=== PATIENT | male | born 1950 | race African-American/Black ===

== ENCOUNTER 2019-06-25 10:16 | Inpatient (IN) | payer OTHER ==
[~2019-06-25] VITALS: Ht 180.3 cm; Wt 90.7 kg
--- NOTE | ~2019-06-25 | O ---
[facility] [place] [address] OPERATIVE REPORT Name: JANIE CHACON Room #: 412-P [facility] IN M.R.#: [id number] Admission: 06/25/19 Attend Phys: Tori Chopra MD Discharge: Date of : 54 Report #: [id number] THIS REPORT FOR: //name// CC: Tori Rutherford DATE OF SERVICE: 07/06/2019 PREOPERATIVE DIAGNOSIS: Left leg osteomyelitis. POSTOPERATIVE DIAGNOSIS: Left leg osteomyelitis. PROCEDURE: Left rirri-scb-ivyy amputation. SURGEON: Dr. Guillaume Garcia. DIDACTIC PROGRAM IN DIETETICS DIRECTOR: Marina Ruiz. ANESTHESIA: General. ESTIMATED BLOOD LOSS: Minimal. DRAINS: One Hemovac drain was placed. COMPLICATIONS: There were no complications. DESCRIPTION OF PROCEDURE: The patient was brought to the operating room where he was placed under general anesthesia. Once under adequate general anesthesia, his left lower extremity was prepped and draped in a sterile manner. The extremity was elevated and tourniquet was placed to 300 mmHg. A fishmouth type incision with a long posterior limb was then made about the mid shaft of the tibia. This was sharply dissected down to the bone both medially and laterally as well as posteriorly. The posterior vessels were identified and tagged with hemostats for later ligation. There was purulence fluid, which did emanate from the wound at this point, this was cultured. An oscillating saw was used to transect the tibia, which was then bevelled anteriorly. Similarly, the fibula was transected with an oscillating saw, a few centimeters proximal to the tibial cut. The wound was then irrigated copiously with pulsatile lavage. The posterior tibial vessels were then suture ligated with 0 silk suture. Once complete, the wound was irrigated once again copiously and closed with #1 Vicryl in the deep fascia to the periosteum of the tibia, 2-0 Vicryl in subcutaneous tissues and salud were used for the skin. The wounds were dressed with Xeroform, 4 x 4s, and a sterile soft compressive dressing was placed. Tourniquet was let down at 45 minutes. There were no complications from the [address] [address] OPERATIVE REPORT Name: OSWALDOJANIE Room #: 412-P [facility] IN M.R.#: [id number] Admission: 06/25/19 Attend Phys: Tori Chopra MD Discharge: Date of : 54 Report #: [id number] procedure. The patient tolerated the procedure well and went to the recovery room without incident. By: [id number] Guillaume Garcia MD /nt
--- NOTE | ~2019-06-25 | HC ---
[facility] [place] [address] CONSULTATION Name: JANIE CHACON Room #: 412-P [facility] IN M.R.#: [id number] Admission: 06/25/19 Attend Phys: Tori Chopra MD Discharge: Date of : 54 Report #: [id number] THIS REPORT FOR: //name// CC: Tori Rutherford DATE OF SERVICE: 06/29/2019 WOUND CARE CONSULTATION PERSONAL PHYSICIAN: Juan C Mckenzie. CHIEF COMPLAINT: Diabetic foot ulcers. HISTORY OF PRESENT ILLNESS: This is a 69-year-old black male with a longstanding history of diabetes and peripheral neuropathy, who stated approximately in the past 1-2 years he started developing a Charcot foot deformity on his left foot, developing a callus on the plantar aspect of the foot. The patient states that within the past month he was trying to clean a callus off the bottom aspect of his foot and might have gotten too deep. The patient subsequently developed an infection over the plantar aspect of the mid foot. He has been on 2 courses of antibiotics and was getting progressively worse. The patient states he has significant neuropathy, so does not have much pain associated with this. He had no fevers or chills. The patient was seen in the office by Dr. Mckenzie and was felt to have a significant foot infection, was admitted to the hospital for IV antibiotics. The patient admits he does not check his blood sugars on a regular basis. The patient was found to have an elevated blood sugar when admitted to the hospital. The patient denies any other associated ulcerations or wounds at this time. PAST MEDICAL HISTORY: Significant for longstanding diabetes, hypertension, hyperlipidemia, tonsillectomy and a Charcot foot arthropathy on the left foot. CURRENT MEDICATIONS: Multiple, I reviewed the patient's medication list and does include IV antibiotics at this time. DRUG ALLERGIES: None. 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 FAMILY HISTORY: Not pertinent to current medical condition. REVIEW OF SYSTEMS: CONSTITUTIONAL: The patient denies fevers or chills. NEUROLOGIC: The patient complains of significant neuropathy in his bilateral [facility] [address] [place] [address] CONSULTATION Name: JANIE CHACON Room #: 412-P [facility] IN ..#: [id number] Admission: 06/25/19 Attend Phys: Tori Chopra MD Discharge: Date of : 54 Report #: [id number] lower extremities. Denies any actual weakness in arms or legs. EYES: No complaints. ENT: No complaints. CARDIAC: The patient has chronic edema in bilateral lower extremities, left greater than right, but denies chest pain or palpitation. RESPIRATORY: The patient denies shortness of breath, cough or wheezes. GASTROINTESTINAL: The patient denies nausea, vomiting, abdominal pain. GENITOURINARY: The patient denies urgency or frequency. MUSCULOSKELETAL: No complaints. SKIN: There is bullous lesions noted on the left dorsal foot, which extends essentially circumferentially around the ankle. There is also a chronic ulcer on the plantar aspect of the left foot. PHYSICAL EXAMINATION: VITAL SIGNS: Temperature 37.1, pulse 89, respirations 18, BP 151/85. GENERAL: This is an alert and oriented x 3, pleasant black male who is in no obvious distress. HEENT: Normocephalic, atraumatic. Mucous membranes are moist. Pupils are round. Sclerae white. NECK: Supple, nontender. LUNGS: Clear. HEART: Regular. ABDOMEN: Soft, nontender. EXTREMITIES: The patient moves all extremities without difficulty. Evaluation of left lower extremity reveals trace edema. There is 1+ dorsalis pedis and posterior tibial pulse on the plantar aspect of the left foot, there is a chronic ulceration which is full thickness down into the subcutaneous tissues. There is no evidence of any exposed bone. There is surrounding callus without significant undermining or tunneling. There is no actual increased erythema or warmth. Evaluation of the dorsal aspect of the foot reveals bullous lesions extending circumferentially around the ankle. These are partial thickness through the dermal tissue. There is mild increased erythema and warmth. There is no significant tenderness. Evaluation of left great toe reveals to be ecchymotic/necrotic but nontender. There is no significant breakdown of the left fifth toe. There is no extension of any obvious signs of necrosis down into the foot itself. Right foot is unaffected. Left foot, there is a significant Charcot arthropathy noted on the left foot. NEUROLOGIC: Cranial nerves 2-12 grossly intact. Motor and sensory grossly intact. LABORATORY DATA: White count 9.1, hemoglobin 9.4. Sed rate 72. Albumin 1.3. Hemoglobin A1c is 12.6. Testosterone level is pending. Arterial Dopplers of the left lower extremity show triphasic flow down to the ankle without any signs of stenosis. MRI of the left foot reveals acute Charcot foot changes, but no signs of acute osteomyelitis. [facility] [address] [place] [address] CONSULTATION Name: JANIE CHACON Room #: 412-P [facility] IN M.R.#: [id number] Admission: 06/25/19 Attend Phys: Tori Chopra MD Discharge: Date of : 54 Report #: [id number] WOUND CARE COURSE: At the bedside, the patient had the wound cleansed aggressively by myself with gauze and saline, removing significant amount of the bullous denuded lesions down to healthy dermal tissue. The patient tolerated well. I will start Silvadene, Xeroform, ABDs, Kerlix and Cain to the left foot daily. At this time, hopefully all these changes noted on the MRI and the clinical exam are secondary to Charcot arthropathy. The patient will not require amputation of the foot itself. The patient most likely will require an amputation of the left fifth toe, which the patient is understandable of that. IMPRESSION: 1. Acute Charcot arthropathy, left foot with associated bullous cellulitis. 2. Necrotic left fifth toe. 3. Diabetes mellitus with poor control. 4. Generalized debility. 5. Protein-calorie malnutrition -- severe with albumin 1.3. PLAN: As described above. We will continue to follow the patient for aggressive wound care. Once again, the patient does understand that most likely he will lose his fifth toe, but hopefully will be able to salvage the rest of his foot at this time. The patient will need aggressive offloading with a [place] boot or similar at discharge. We will continue all other current medications including IV antibiotics. By: [id number] [address]i [address] MD /nt
[2019-06-25 10:17] VITALS: BP 133/74
[2019-06-25] MEDS ORDERED: METFORMIN HCL1000 MG PO (10:48)
[2019-06-25] MEDS ORDERED: AMLODIPINE BESY10 MG PO (10:53)
[2019-06-25] MEDS ORDERED: GLYBURIDE 5 MG T5 M1 PO (10:53)
[2019-06-25] MEDS ORDERED: LIPITOR10 MG PO (10:53)
[2019-06-25 13:49] LABS: ABSOLUTE NEUTROPHILS 10.3 thou/uL (1.4-8.2); BASOPHILS 0.3 % (0.0-2.0); EOSINOPHILS 0.1 % (0.0-3.0); HEMATOCRIT 33.6 % (42.0-52.0); HEMOGLOBIN 10.8 gm/dL (14.0-18.0); MCH 29.1 pg (26.0-34.0); MCHC 32.2 g/dL (28.0-37.0); MCV 90.2 fL (80.0-100.0); MONOCYTES 5.2 % (1.0-8.0); PLATELET COUNT 298 thou/uL (150-400); POLYS 84.4 % (36.0-66.0); RBC 3.72 mil/uL (4.50-6.00); WBC 12.2 thou/uL (4.0-11.0)
[2019-06-25 14:01] LABS: CALCIUM 10.2 mg/dL (8.5-10.1); CREATININE 1.1 mg/dL (0.7-1.3); POTASSIUM 3.6 mmol/L (3.5-5.1)
--- NOTE | 2019-06-25 15:51 | NUR ---
WOUND CARE CONSULT; ASSESSMENT RE; CHARCOT FOOT/CELLULITIS. THE FOOT HAS S/S CONSISTIENT W/ CHARCOT FOOT. A DRAINING WOUND OF THE LEFT PLANTAR FOOT,WITH PURULENT DRAINAGE. SKIN SHOUGING TO THE LAT FOOT AND HEEL. THE DORSUM FOOT HAS A WOUND THAT HAS BEEFY RED TISSUE. RECOMMENDATIONS; CONSULT DR SARATH ABRAHAM FOR WOUND CARE MEDICAL MANAGEMENT. AG FOAM TO ALL WOUNDS, SECURE WITH KERLIX, DAILY/PRN TO THE DORSUM,PLANTAR FOOT AND ANKLE. ELEVATE THIS EXTREMITY ON PILLOWS.
[2019-06-25 16:16] VITALS: BP 128/69
[2019-06-25 16:36] VITALS: BP 132/72
--- NOTE | 2019-06-25 18:26 | NUR ---
PT ARRIVED ON UNIT FROM ER AT 1700. PT VSS, BS 262, AND DENIES PAIN IN LLE. PT IS AOX4, IV SL RIGHT AC. PT ARRIVED IN WHEELCHAIR AND TRANSFERRED TO BED BY STAND PIVOT. PT LEFT FOOT HAS 3+ EDEMA. WOUND CARE NURSE ASSESSED AND WRAPPED FOOT IN ER. PT TOLERATED A REGULAR DIET, NO SKIN BREAKDOWN, LAST BM 06/23/19. NURSE ENCOURAGED PT TO USE CALL LIGHT BEFORE GETTING OUT OF BED. PT USES APPROP. CALL LIGHT/PERSONAL ITEMS IN REACH. WILL CONTINUE TO MONTIOR.
[2019-06-25 21:21] VITALS: BP 128/71
--- NOTE | 2019-06-26 05:47 | NUR ---
ASSUMED PT CARE AT 1915. PT IS A&OX4. THE PT IS PLEASANT AND BEHAVES APPROPRIATELY. PT HAS AN IV IN THE RIGHT AC. PT TOOK SCHEDULED MEDS. I HUNG THE ANTIBIOTICS. THE PT'S BLOOD SUGAR WAS 307. I GAVE 16 UNITS OF LISPRO. THE PT COMPLAINED OF PAIN OF 10 ON A SCALED OF 0-10 ON THE LEFT FOOT AND ANKLE. PT'S LEFT FOOT/ANKLE HAS A 3+ EDEMA AND IS WARM TO THE TOUCH. THE PT SAID THAT HE COULD NOT SLEEP DUE TO THE PAIN. I CALLED THE [employer] WORK[employer] TO GET SOMETHING FOR PAIN. I GAVE THE PT 2 HYDROCODONES. HE IS CURRENTLY RESTING IN HIS ROOM. WILL CONTINUE TO MONITOR.
[2019-06-26 07:28] VITALS: BP 141/74
[2019-06-26 07:31] LABS: BASOPHILS 0.2 % (0.0-2.0); EOSINOPHILS 0.5 % (0.0-3.0); HEMOGLOBIN 9.2 gm/dL (14.0-18.0); LYMPHOCYTES 19.1 % (24.0-44.0); MCH 29.5 pg (26.0-34.0); MCHC 32.6 g/dL (28.0-37.0); MCV 90.3 fL (80.0-100.0); MONOCYTES 5.7 % (1.0-8.0); PLATELET COUNT 275 thou/uL (150-400); POLYS 74.5 % (36.0-66.0); RDW 13.6 % (10.5-14.5); WBC 9.4 thou/uL (4.0-11.0)
[2019-06-26 07:47] LABS: INR 1.1; PROTIME 11.7 Seconds (9.3-11.4)
[2019-06-26 07:53] LABS: ALBUMIN 1.3 g/dL (3.4-5.0); CALCIUM 9.5 mg/dL (8.5-10.1); MAGNESIUM 1.5 mg/dL (1.8-2.4); POTASSIUM 3.1 mmol/L (3.5-5.1); TOTAL BILIRUBIN 0.3 mg/dL (<0.1-1.0); TOTAL PROTEIN 6.8 g/dL (6.4-8.2)
--- NOTE | 2019-06-26 09:16 | NUR ---
Nutrition: Assessed due to wound. Admit: cellulitis L foot, active charcot. Possible osteomyelitis. Hx: DM II. No wt loss reported, but on interview, pt reports low appetite for ~1 week (eating < 50% compared to baseline intake). However, appetite came back Sun 06/24. Ate 80% of dinner 06/25 and nearly 100% of AM tray today (omelette, sausage, waffle w/ SF syrup, juice). Understands DM diet; follows a low Na, low CHO diet at home. Educated him on protein importance for wounds. Per EMR: L foot/ankle 3+ edema, charcot foot, L plantar foot wound w/ drainage. On antibiotics. Discussed priority protein first at meals in case appetite varies. Pt very active prior to this, walking before gym session. BG greatly elevated at 262-307 mg/dl last night, 136 this AM per pt. Agrees to daily Ensure MAX for added protein, low carb value to help keep BGs lower to minimize delayed wound healing. Low nutrition risk as pt very knowledgeable and nutrition aware.
--- NOTE | 2019-06-26 10:40 | NUR ---
INITIAL ASSESSMENT: SW reviewed chart and spoke with nursing and attending physician. 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 Mckenzie, yesterday. Pt with left foot cellulitis. Pt with hx of DM. Pt is on IV abx: vanco/zosyn. ID and wound care consulted. SW met with pt at bedside. Introduced role of SW. Pt is alert/orientated x 4. Pt reports he lives at home with his . Prior to admission pt was wearing a boot and using a walker. No hx of services or post-acute placement. Pt's PCP is Dr. Rutherford. SW is following to assist as needed with discharge planning.
[2019-06-26 15:43] VITALS: BP 167/80
--- NOTE | 2019-06-26 20:05 | NUR ---
ASSUMED CARE OF PATIENT AT 0715, PATIENT ALERT AND ORIENTED X 4. PATIENT C/O PAIN 10/11, BUT REFUSED PAIN MEDS THIS AM. PATIENT VOIDS PER URINAL, LAST BOWEL MOVEMENT 06/24/19. DR DIAZ SAW THE PATIENT TODAY, US ATERIAL LOWER EXT. ORDERED, DONE BY ILDA. PATIENT C/O PAIN HYDROCODONE 2 TABLETS GIVEN 01/10, WITH GOOD RELIEF. WOUND CARE DONE TO LEFT FOOT, PHOTO TAKEN, UNABLE TO MEASURE. RIGHT AC IV IN PLACE, NS AT 100CC/HR. PATIENT RECEIVING 2 IV ANTIBIOTICS THIS SHIFT. THIS RN PLACED CALL TO DR CORBIN, LEFT VOICE MESSAGE ON [employer] IS [facility] [place] [address] [address], BUT NO RETURN CALL. WILL CONTINUE TO MONITOR.
[2019-06-26 21:22] VITALS: BP 151/79
--- NOTE | 2019-06-27 03:21 | NUR ---
ASSUMED CARE OF PATIENT AT APPROX 1999. ASSESSMENT CHARTED. MEDICATIONS GIVEN PER SEP. PATIENT IS A&OX4, VSS, O2 SATS WNL ON RA. PATIENT VOICES PAIN AT FOOT. PRN PAIN MEDS ADMINISTERED. PATIENT GETS UP TO BATHROOM WITH ASSIST X 2 BUT HAS NOT GOTTEN UP THIS SHIFT. PATIENT VOIDS IN URINAL; DARK YELLOW URINE. HEPARIN ADMINISTERED FOR VTE PROPHALAXIS. INSULIN ADMINISTERED FOR FSBS OF 166. PATIENT DENIES ANY OTHER NEEDS AT THIS TIME. FALL PRECAUTIONS IN PLACE; PATIENT CALLS OUT APPROPRIATELY. WILL CONTINUE TO MONITOR AND FOLLOW POC
[2019-06-27 04:06] LABS: GLYCOHEMOGLOBIN (HGB A1C) 12.6 % (4.8-5.6)
[2019-06-27 05:54] VITALS: BP 150/84
[2019-06-27 07:08] LABS: ABSOLUTE NEUTROPHILS 7.3 thou/uL (1.4-8.2); BASOPHILS 0.2 % (0.0-2.0); EOSINOPHILS 0.6 % (0.0-3.0); HEMATOCRIT 28.1 % (42.0-52.0); HEMOGLOBIN 9.3 gm/dL (14.0-18.0); LYMPHOCYTES 18.3 % (24.0-44.0); MCH 29.9 pg (26.0-34.0); MCHC 33.1 g/dL (28.0-37.0); MCV 90.5 fL (80.0-100.0); MONOCYTES 6.8 % (1.0-8.0); PLATELET COUNT 260 thou/uL (150-400); POLYS 74.1 % (36.0-66.0); RDW 13.7 % (10.5-14.5); WBC 9.9 thou/uL (4.0-11.0)
[2019-06-27 07:13] LABS: CALCIUM 8.7 mg/dL (8.5-10.1); MAGNESIUM 1.4 mg/dL (1.8-2.4); PHOSPHORUS 3.5 mg/dL (2.5-4.9); POTASSIUM 3.4 mmol/L (3.5-5.1)
[2019-06-27 08:11] VITALS: BP 131/77
--- NOTE | 2019-06-27 18:06 | NUR ---
Assumed pt care at 7am.Assessment completed.vss.Pt tolerated meds and diet. Dr Jones here early this shift and order noted.Drsg inatct to left foot.Wound cx will be obtain next drsg change.Pt took shower this afternoon.Piv accidentally dc'd by pt and new one placed.Family here to visit.Pt c/o left foot pain and lortab 2 tabs given with relief.Will continue to monitor.
[2019-06-27 20:22] VITALS: BP 156/89
[2019-06-28 03:55] VITALS: BP 185/96
--- NOTE | 2019-06-28 04:02 | NUR ---
ASSUMED CARE AROUND 191. AXOX4. LEFT FOOT DRESSING CHANGED AND CULTURE COLLECTED AT BEDSIDE. NOTED BP ELEVATION AND PT'S HOME BP MED WAS NOT RESTARTED. CALLED [employer]REG MOFFETT DESIGN CONSULTANT FOR AND OBTAINED NEW ORDERS FOR ELEVATED BP. PAIN MANAGED PER MD ORDER AND L FOOT HAS BEEN ELEVATED HIGHER THAN CHEST LEVEL AT ALL TIME AT THIS TIME. NO S/S ACUTE DISTRESS NOTED OR REPORTED AT THIS TIME. WILL CONT TO MONITOR FOR ANY CHANGES IN CONDITION.
[2019-06-28 05:37] LABS: MAGNESIUM 1.5 mg/dL (1.8-2.4); POTASSIUM 3.4 mmol/L (3.5-5.1)
[2019-06-28 06:07] VITALS: BP 146/79
--- NOTE | 2019-06-28 06:59 | NUR ---
Nutrition update: Pt already assessed by RD on 06/26, educated on protein foods and started on oral nutrition supplement (Ensure Max daily: 30 g protein, only 6 g CHO). See note from 06/26. Received consult for 'protein supplement, Wilder.' Pt eating incredibly well. Ate 100% of 3 meals on 06/26, 100% of 3 meals on 06/27, plus 100% 2 supplements on 06/27. Given that pt consumed 2 supplements in 1 day, will regularly increase Ensure Max to BID at breakfast and dinner and add Wilder modular daily to midday meal. With increased nutrition interventions and 100% PO intake, low nutrition risk.
[2019-06-28 07:57] VITALS: BP 172/85
[2019-06-28 11:53] VITALS: BP 138/71
[2019-06-28 15:08] LABS: TESTOSTERONE* 44 ng/dL (264-916)
--- NOTE | 2019-06-28 16:15 | NUR ---
CARE TEAM INDICATED THAT ORTHO HAD BEEN CONSULTED. CM TO FOLLOW REGARDING DC PLANNING.
--- NOTE | 2019-06-28 16:25 | NUR ---
Assumed pt care this am, VS have been stable, supplements have been ordered. Wound dressing done, awaiting podietry consult and surgical consult to come and visits call outs have been made. LLE elevated, pain managed with medications. POC followed.
[2019-06-28 16:31] VITALS: BP 129/64
[2019-06-28 19:51] VITALS: BP 131/65
--- NOTE | 2019-06-29 00:45 | NUR ---
ASSUMED PT CARE AT 1900. PT A&O X4. LEFT FOOT WOUND WEEPING, DRESSING CHANGED. PAIN MANAGED WITH MEDICATIONS. MAG & K ONE TIME DOSE GIVEN FOR LOW VALUES. STARTED ON INSULIN GLARGINE WILLIAM. DR DIAZ SAW PT THIS EVENING. NO OTHER SIGNIFICANT CHANGES, WILL CONTINUE TO MONITOR.
[2019-06-29 06:27] LABS: ABSOLUTE NEUTROPHILS 7.1 thou/uL (1.4-8.2); BASOPHILS 0.4 % (0.0-2.0); EOSINOPHILS 0.3 % (0.0-3.0); HEMATOCRIT 29.4 % (42.0-52.0); HEMOGLOBIN 9.4 gm/dL (14.0-18.0); LYMPHOCYTES 16.7 % (24.0-44.0); MCH 29.1 pg (26.0-34.0); MCV 90.9 fL (80.0-100.0); MONOCYTES 5.3 % (1.0-8.0); PLATELET COUNT 263 thou/uL (150-400); POLYS 77.3 % (36.0-66.0); RBC 3.24 mil/uL (4.50-6.00); RDW 14.4 % (10.5-14.5); WBC 9.1 thou/uL (4.0-11.0)
[2019-06-29 06:52] LABS: ALBUMIN 1.3 g/dL (3.4-5.0); CALCIUM 8.3 mg/dL (8.5-10.1); MAGNESIUM 1.8 mg/dL (1.8-2.4); PHOSPHORUS 3.3 mg/dL (2.5-4.9); POTASSIUM 3.9 mmol/L (3.5-5.1); TOTAL BILIRUBIN 0.3 mg/dL (<0.1-1.0); TOTAL PROTEIN 6.4 g/dL (6.4-8.2)
[2019-06-29 07:30] VITALS: BP 151/85
--- NOTE | 2019-06-29 12:06 | NUR ---
Assumed pt care at 7am.Pt in bed alert and oriented x4.Assessment completed. vss.Blood sugar this am was 129.Insulin given with other am meds with breakfast and well tolerated.Dr Jacobo and Nav here,both discussed on pt care options.Pt will take shower later this afternoon.Will continue to monitor.
--- NOTE | 2019-06-29 13:38 | NUR ---
SW reviewed chart and spoke with nursing and attending physician. Ortho, podiatry, wound care and ID following. Pt will need further debridement. Possible amputation per ortho. Pt will most likely need IV abx at time of discharge. SW met with pt at bedside to discuss discharge needs. Pt states that if he needs IV abx, he will be agreeable with going to a skilled facility. Pt states that his will not be able to assist him. SW provided pt with list of SNFs for review. No weekend discharge planned. Awaiting input from ID regarding abx. Pt will need midline placed. SW is following to assist as needed with discharge planning.
[2019-06-29 14:56] VITALS: BP 148/92
[2019-06-29 19:06] VITALS: BP 141/76
[2019-06-29 22:09] LABS: FREE TESTOSTERONE 5.7 pg/mL (6.6-18.1)
--- NOTE | 2019-06-30 03:53 | NUR ---
PATIENT ALERT AND ORIENTED X4. REMAINS IN BED THROUGHOUT THE NIGHT. VOIDING PER URINAL. DRESSING DRY AND INTACT. IV ABX INFUSED W/O COMPLICATION. BS AND INSULIN PER ORDER. RESTING QUIETLY. WILL MONITOR.
[2019-06-30 05:52] LABS: ABSOLUTE NEUTROPHILS 4.6 thou/uL (1.4-8.2); BASOPHILS 0.4 % (0.0-2.0); HEMATOCRIT 27.7 % (42.0-52.0); LYMPHOCYTES 24.1 % (24.0-44.0); MCH 29.1 pg (26.0-34.0); MCHC 32.4 g/dL (28.0-37.0); MCV 89.7 fL (80.0-100.0); MONOCYTES 7.6 % (1.0-8.0); PLATELET COUNT 250 thou/uL (150-400); POLYS 66.9 % (36.0-66.0); RBC 3.08 mil/uL (4.50-6.00); WBC 6.8 thou/uL (4.0-11.0)
[2019-06-30 06:01] LABS: CALCIUM 8.8 mg/dL (8.5-10.1); POTASSIUM 3.7 mmol/L (3.5-5.1)
[2019-06-30 07:35] VITALS: BP 155/87
--- NOTE | 2019-06-30 17:09 | NUR ---
ASSUMED CARE OF PATIENT AT 0715, PATIENT ALERT AND ORIENTED X 4. PATIENT USES URINAL, BUT HAS NOT BBE UP TO BSC TO HAVE A BOWEL MOVEMENT, RECEIVING MIRALAX SCHEDULED. PATIENT HAS LEFT FOREARM IV IN PLACE, RECEIVING IV ANTIBIOTICS. PATIENT DENIES PAIN THIS AM, BUT C/O PAIN WITH LEFT FOOT, AFTER WOUND CARE DONE, WOUND CARE DONE THIS AM AND ELEVATED LEFT FOOT ON A PILLOWS. PATIENT ON ROOM AIR, BILATERAL LUNGS CLEAR. PATIENT WAS GIVEN HYDROCODONE 2 TABLETS, FOR PAIN /, GOOD RELIEF DOWN TO 2/10. BLOOD SUGAR MONITORING ORDERED, S/S INSULIN GIVEN AT LUNCH 229, RECEIVED [address] HARRISON HERE THIS AM, MADE CHANGES TO LANTUS AT BEDTIME, INCREASED TO 15 UNITS AT HS. WILL NING TO MONITOR.
[2019-06-30 18:25] VITALS: BP 172/88
[2019-06-30 20:15] VITALS: BP 158/86
--- NOTE | 2019-07-01 04:00 | NUR ---
PATIENT ALERT AND ORIENTED X4. REMAINS IN BED THROUGHOUT THE NIGHT. DRESSING TO LEFT FOOT CHANGED - MODERATE AMOUNT OF SEROSANG. DRAINAGE WITH SOME YELLOW NOTED. PATIENT TOLERATED WELL. BS MONITORED PER ORDER. PAIN MED REQUESTED AND GIVEN WITH GOOD RESULTS. RESTING QUIETLY. WILL MONITOR.
[2019-07-01 07:27] VITALS: BP 116/67
[2019-07-01 14:44] VITALS: BP 143/70
--- NOTE | 2019-07-01 21:03 | NUR ---
ASSUMED CARE OF PT AT 0715. PT IS A&OX4. IS ON ROOM AIR. IS UP WITH 1 ASSIST, GB, WALKER. FALL PRECAUTIONS & HOURLY ROUNDING MAINTAINED. REPORTS PAIN IN THE LEFT FOOT THAT IS BEING MANAGED WITH PAIN MEDS. DRSG WAS CHANGED BY DR. MONTES DE OCA THIS AM. LABS & VITALS REVIEWED. PT IS STABLE. CALL LIGHT WITHIN REACH. WILL CONTINUE TO MONITOR.
[2019-07-01 21:07] VITALS: BP 155/89
--- NOTE | 2019-07-02 04:07 | NUR ---
PATIENT ALERT AND ORIENTED X4. DENIES PAIN. ACCUCHECK WAS 318, RECIEVED BOTH LANTUS AND LISPRO INSULINB. DRESSING ON L FT SATURATED, DRESSING CHANED. USES URINAL. SLEPT OFF AND ON DURING NIGHT.
[2019-07-02 04:50] LABS: ABSOLUTE NEUTROPHILS 4.1 thou/uL (1.4-8.2); ALBUMIN 1.3 g/dL (3.4-5.0); BASOPHILS 0.3 % (0.0-2.0); CALCIUM 9.3 mg/dL (8.5-10.1); CREATININE 1.1 mg/dL (0.7-1.3); EOSINOPHILS 1.1 % (0.0-3.0); HEMATOCRIT 27.8 % (42.0-52.0); HEMOGLOBIN 9.2 gm/dL (14.0-18.0); LYMPHOCYTES 31.9 % (24.0-44.0); MAGNESIUM 1.8 mg/dL (1.8-2.4); MCH 29.7 pg (26.0-34.0); MCHC 33.1 g/dL (28.0-37.0); MCV 89.7 fL (80.0-100.0); MONOCYTES 8.4 % (1.0-8.0); PHOSPHORUS 3.8 mg/dL (2.5-4.9); PLATELET COUNT 315 thou/uL (150-400); POLYS 58.3 % (36.0-66.0); POTASSIUM 3.8 mmol/L (3.5-5.1); TOTAL BILIRUBIN 0.2 mg/dL (<0.1-1.0); TOTAL PROTEIN 7.5 g/dL (6.4-8.2)
[2019-07-02 07:48] VITALS: BP 155/87
--- NOTE | 2019-07-02 08:47 | NUR ---
SW reviewed chart and spoke with nursing and attending physician. Pt is progressing towards goals for discharge. Pt will need wound care and continued IV abx. TAWANA met with pt at bedside to discuss discharge plan. Pt requests to have referral sent to [facility] due to location. town planner to fax referral. TAWANA notified Ev at [facility] of new referral. TAWANA is following to assist as needed with discharge planning.
--- NOTE | 2019-07-02 09:52 | NUR ---
DISCHARGE PLANNING. ANTICIPATED DISCHARGE TODAY. POST ACUTE RECOMMENDED AT DISCHARGE. PATIENT REFERRAL FAXED TO [facility]. CALL PLACED TO [facility] ADMISS[facility], TO NOTIFY OF REFERRAL AND PATIENTS DC NEEDS. DEMETRIUS TO REVIEW AND NOTIFY CM. FOLLOWING.
[2019-07-02 11:08] LABS: KAPPA FREE LIGHT CHAINS 100.2 mg/L (3.3-19.4); KAPPA/LAMBDA RATIO 1.04 (0.26-1.65); LAMBDA FREE LIGHT CHAINS 96.2 mg/L (5.7-26.3)
[2019-07-02 16:05] VITALS: BP 138/74
[2019-07-02 20:24] VITALS: BP 139/74
--- NOTE | 2019-07-02 20:35 | NUR ---
Received awake on bed. Due medications given as prescribed, able to swallow meds w/o difficulty. A+O. On room air. Vital signs stable. On blood sugar monitoring, taken and recorded accordingly; with sliding scale insulin- given as prescribed. Able to use urinal and assisted in using bedside commode. With SL at L FA- intact and flushing well. With dressing at L foot- changed 2x today. Able to use gaitbelt and walker with standby assisted. Assisted in ADLs. Tolerating diet well; no nausea, no vomiting and no abdominal pain noted. Complained of pain, due PRN pain meds given as prescribed- Called pharmacy to modify pain scale criteria for pt's pain meds. Visited by relatives today. For possible discharge tomorrow.
[2019-07-03 06:25] LABS: HEMATOCRIT 25.3 % (42.0-52.0); HEMOGLOBIN 8.2 gm/dL (14.0-18.0); MCH 29.2 pg (26.0-34.0); MCHC 32.4 g/dL (28.0-37.0); MCV 90.2 fL (80.0-100.0); RBC 2.8 mil/uL (4.50-6.00); RDW 13.9 % (10.5-14.5); WBC 6.1 thou/uL (4.0-11.0)
[2019-07-03 06:47] LABS: CALCIUM 9.1 mg/dL (8.5-10.1); POTASSIUM 3.8 mmol/L (3.5-5.1)
--- NOTE | 2019-07-03 07:11 | NUR ---
ASSUMED PT CARE AR 1915. PT IS A&OX4. PT IS ON ROOM AIR. PT HAS A LEFT FOREARM IV SALINE LOCKED. I DID A DRESSSING CHANGE ON THE LEFT FOOT. PT COMPLAINS OF LEVEL 9 PAIN AFTER DRESSING CHANGE. PT RECEIVED HYDROCODONE. PT BLOOD SUGAR WAS 213. PT RECEIVED 15 UNITS OF LANTUS AND 10 UNITS OF LISPRO. PT TOOK SCHEDULED MEDICATION. PT SLEPT THROUGHT THE NIGHT. PT IS LOOKING FORWARD TO DISCHARGE BUT NOT EXPECTING IT BECAUSE OF THE CHANGE OF PLANS LAST MINUTE. PT RESTING IN HIS ROOM.
[2019-07-03 08:12] VITALS: BP 165/91
--- NOTE | 2019-07-03 12:27 | NUR ---
SW reviewed chart and spoke with nursing and attending physician. Ortho to be consulted for possible left BKA. SW remains on IV abx: cipro/merrem. urban planner updated spiritual care coordinator at [facility], who has accepted pt. Pt may be a 5N candidate pending on possible amputation. SW is following to assist as needed with discharge planning.
[2019-07-03 15:17] VITALS: BP 136/69
--- NOTE | 2019-07-03 18:18 | NUR ---
PT ALERT AND ORIENTED TIMES FOUR. VSS. PT DENIES PAIN/SOA. PT TOLEARTES MEDS AND MEALS. SEVERAL FAMILY MEMBERS AT BEDSIDE THIS SHIFT. WILL CONTINUE TO MONITOR.
[2019-07-03 20:01] VITALS: BP 175/85
[2019-07-03 23:41] VITALS: BP 144/78
--- NOTE | 2019-07-04 06:02 | NUR ---
Assumed pt care @ 1900. Pt is A/OX4,pleasant. Pt's BP elevated at HS medicated with Hydralazine PRN and down to 144/78. C/o pain to left foot,medicated per EMAR with relief reported. Wound care done to left foot withoput problems,copious brown/yellow drainage observed. Pt resting in bed at this time with no distress noted. Will continue to monitor pt.
[2019-07-04 06:22] LABS: HEMATOCRIT 25.6 % (42.0-52.0); HEMOGLOBIN 8.5 gm/dL (14.0-18.0); MCH 29.6 pg (26.0-34.0); MCHC 33.1 g/dL (28.0-37.0); MCV 89.6 fL (80.0-100.0); RBC 2.86 mil/uL (4.50-6.00); RDW 13.5 % (10.5-14.5); WBC 5.8 thou/uL (4.0-11.0)
[2019-07-04 06:35] LABS: CALCIUM 9.4 mg/dL (8.5-10.1); POTASSIUM 3.8 mmol/L (3.5-5.1)
[2019-07-04 08:00] VITALS: BP 137/71
[2019-07-04 13:40] VITALS: BP 123/72
--- NOTE | 2019-07-04 17:16 | NUR ---
ASSUMED CARE OF PATIENT AT 0715, PATIENT ALERT AND ORIENTED X 4. PATIENT C/O PAIN WITH LEFT FOOT, 01/10, RECEIVED 2 HYDROCODONE TABLETS. WITH AM MED PASS. VSS. LEFT FOOT WOUND DRESSING IN PLACE, LEFT FOOT ELEVATED ON PILLOWS. PATIENT HAS LEFT FOREARM IV IN PLACE, PATIENT RECEIVED 3 IV AN[address]ICS THIS SHIFT. DR RECINOS HERE TO SEE THE PATIENT THIS AM, NO NEW ORDERS RECEIVED. PATIENT STATES HE HAS DECIDED TO HAVE AMPUTATION OF LEFT FOOT DONE. WILL CONTINUE TO MONITOR.
[2019-07-04 21:00] VITALS: BP 131/77
--- NOTE | 2019-07-05 05:00 | NUR ---
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 REMAINS IN [employer]. PLEASANT AND COOPERATIVE WITH ASSESSMENT PROCESS AND ALL CARE. DRESSINGS CHANGED TO L FOOT THIS SHIFT. C/O PAIN LATE EVENING. PRN HYDROCODONE ADMINISTERED PER ORDERS. WILL CONTINUE TO MONITOR
[2019-07-05 08:27] VITALS: BP 134/68
--- NOTE | 2019-07-05 10:37 | NUR ---
SW reviewed chart and spoke with nursing and attending physician. Ortho evaluated pt. Plan for left BKA tomorrow, 07/06. manager social media updated Ev at [facility]. 5N to evaluate pt after surgery and therapy evals to determine if pt is a candidate for inpt acute rehab. SW is following to assist as needed with discharge planning.
[2019-07-05 16:09] LABS: GLOBULIN TOTAL 4.3 g/dL (2.2-3.9); M-SPIKE Not Observed g/dL (Not Observed)
--- NOTE | 2019-07-05 16:33 | HC ---
[facility] [place] [address] CONSULTATION Name: JANIE CHACON Room #: 412-P [facility] IN .R.#: [id number] Admission: 06/25/19 Attend Phys: Tori Chopra MD Discharge: Date of : 54 Report #: [id number] THIS REPORT FOR: //name// CC: Tori Rutherford DATE OF SERVICE: 06/28/2019 REASON FOR CONSULTATION: Left foot wound with possible osteomyelitis. HISTORY OF PRESENT ILLNESS: The patient is a 69-year-old male with a longstanding history of diabetes for approximately 27 years, who reports one month ago being a little too aggressive with calluses and noting a wound on the plantar surface of his left foot. He has had swelling and was diagnosed with a Charcot foot, a few years ago. He reports on Tuesday noticed increased swelling and redness in the foot. He has been treated by Dr. Mckenzie for approximately 3 weeks and after he was seen on Tuesday, he was admitted to the hospital. He has been wearing boots. REVIEW OF SYSTEMS: INTEGUMENTARY: Denies other wounds. NEUROLOGIC: Reports history of bilateral lower extremity diabetic neuropathy. PAST MEDICAL HISTORY: Significant for poorly controlled diabetes, hypertension. ALLERGIES: No known drug allergies. HOME MEDICATIONS: Include metformin, glyburide, amlodipine and atorvastatin. 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 He previous to this does not use any ambulatory aids, but now uses a boot and a walker to get around. He denies smoking. Drinks alcohol socially. LABORATORY DATA: Done on most recent on 06/27/2019 show white blood cell count 9.9, hemoglobin 9.3, hematocrit 28.1, platelet count 260. INR is 1.1. PHYSICAL EXAMINATION: GENERAL: The patient is a well-developed, well-nourished male, in no acute distress. VITAL SIGNS: Most recent vital signs include temperature is 36.7, heart rate is 98, blood pressure 129/64. EXTREMITIES: Examination of his left lower extremity shows a plantar ulcer. He has a dorsal subcutaneous skin desquamation, significant edema and deformity to the foot. He wiggles his toes. He has decreased sensation diffusely. He has erythema just proximal to the ankle. [address] [address] CONSULTATION Name: JANIE CHACON Room #: 412-P [facility] IN .R.#: [id number] Admission: 06/25/19 Attend Phys: Tori Chopra MD Discharge: Date of : 54 Report #: [id number] RADIOGRAPHS: Three views of the left foot show changes consistent with Charcot arthropathy. MRI again shows changes consistent with Charcot arthropathy, possible osteomyelitis of the cuboid. IMPRESSION AND PLAN: Left foot Charcot joint with a plantar ulcer now with cellulitis, possible osteomyelitis. Per the nursing report, Dr. Mckenzie with Podiatry has also been consulted, but has not yet seen the patient. I discussed the patient with my partner, Dr. Guillaume Garcia and most likely, this patient may require a below-knee amputation. Due to the fact that Podiatry has been consulted, I would recommend that they treat the foot wound with any debridement they think is necessary and let us know if an amputation is necessary and we will perform that. Please call me if you have any questions or concerns or if we can be of any other assistance. <ELECTRONICALLY SIGNED> By: Harika Mathur MD 07/05/19 1633 1813 0017 Harika Mathur MD /nt
--- NOTE | 2019-07-05 18:09 | NUR ---
ASSUMED PT CARE AT 0700. PT VSS, RECEIVED INSULIN PER S/S. DRESSING TO LEFT FOOT CHANGED X2 DUE TO DRAINAGE. PT TOOK A SHOWER, IV RESTARTED ON LEFT FOREARM BECAUSE THE OTHER ONE GOT PULLED OUT. PT IN GOOD SPIRITS, CONSENT FORM SIGNED AND PLACED ON CHART. PT WILL BE NPO AT MIDNIGHT FOR PROCEDURE TOMORROW. PT CALLS APPROP, CALL LIGHT/PERSONAL ITEMS IN REACH. WILL CONTINUE TO MONITOR PT.
[2019-07-05 22:40] VITALS: BP 144/74
[2019-07-06] VITALS (10 sets, daily range): BP systolic 110–163; BP diastolic 64–88
[2019-07-06 04:53] LABS: HEMATOCRIT 25.2 % (42.0-52.0); HEMOGLOBIN 8.1 gm/dL (14.0-18.0); MCH 28.8 pg (26.0-34.0); MCHC 32.3 g/dL (28.0-37.0); MCV 89.4 fL (80.0-100.0); RBC 2.82 mil/uL (4.50-6.00); RDW 13.4 % (10.5-14.5); WBC 6.5 thou/uL (4.0-11.0)
--- NOTE | 2019-07-06 05:08 | NUR ---
ASSUMED CARE OF PATIENT FOR BRICK OFFBEARER AT 1900. PLEASANT AND COOPERATIVE WITH ASSESSMENT PROCESS AND ALL CARES AND MEDS. DID C/O PAIN EARLY IN SHIFT AT 01/10. PRN PAIN MEDS ADMINISTERED PER ORDERS. DRESSING CHANGED THIS SHIFT. HAS BEEN NPO SINCE MIDNIGHT IN PREPARATION FOR BKA. NO APPARENT DISTRESS. APPEARS TO [place] GOOD SUPPORT SX AND COPING SKILLS. WILL CONTINUE TO MONITOR
[2019-07-06 05:17] LABS: CREATININE 1.1 mg/dL (0.7-1.3); POTASSIUM 3.9 mmol/L (3.5-5.1)
--- NOTE | 2019-07-06 07:16 | NUR ---
Nutrition: Pt was seen for follow up yesterday on 07/05. Note entered, but did not save into EMR. Pt was eating breakfast. Continues to be a strong appetite with high PO intake levels. Eating near 100% of all meals, with 98% meal average per 9 days (06/26-07/04). He has been receiving Ensure MAX BID w/ breakfast and dinner. Always drinks 100% of at 1/day, other days plays catch up and may drink 2 or more. He is now NPO for scheduled surgery today w/ L BKA planned (pt w/ charcot foot, L foot w/ multiple areas of eschar). He is eating his protein entree, plus milk, plus supplements for very adequate protein intake. Plan to reduce Ensure MAX to once daily per pt request. Encouraged him if appetite declines postdischarge, to notify staff and supplements can be increased again if needed. Otherwise, low nutrition risk.
--- NOTE | 2019-07-06 10:40 | NUR ---
SW reviewed chart and spoke with nursing and attending physician. Pt to have left BKA today. Therapy will need to be ordered to evaluate pt for discharge needs: inpt acute rehab v. SNF. [facility] is following to assist as needed with discharge planning.
--- NOTE | 2019-07-06 13:26 | NUR ---
Assumed pt care at 7am. Pt in bed sleeping till 9am.Assessment completed.vss. Insulin and bp meds given but other meds held since pt was npo for surgery. Dr Aviles here,no new order noted.Received call from operating room about when pt will be mixing picker tender for surgery.Updates given.At 1330,pt left for surgery per bed accompnaied by family.Will continue to monitor.
[2019-07-07] VITALS: BP 111/65
[2019-07-07 01:00] VITALS: BP 112/67
[2019-07-07 02:48] LABS: HEMATOCRIT 27.5 % (42.0-52.0); HEMOGLOBIN 8.9 gm/dL (14.0-18.0)
[2019-07-07 03:02] LABS: POTASSIUM 4.3 mmol/L (3.5-5.1)
--- NOTE | 2019-07-07 04:00 | NUR ---
ASSUMED CARE OF PATIENT AT SHIFT CHANGE. ASSESSMENT CHARTED. MEDICATIONS ADMINISTERED PER EMAR. PATIENT IS A&OX4 AND IS PLEASNT AND COOPERATIVE. PATIENT IS POST OP FROM RECENT BKA AND RETURNED TO UNIT AT 1615. POST OPERATIVE VITAL SIGNS WERE INITIATED BY DAY RN AND CONTINUE TO BE STABLE. PATIENT VOICED PAIN AT 4/10 GIVEN PRN MORPHINE TO CONTROL PAIN. THROUGHOUT NIGHT PATIENT COMPLAINED OF INTERMITTENT PAIN UP TO 8/10. MEDICATION AND ELEVATION OF LIMB APPEARED TO ALLEVEATE THIS PAIN. MARITA WRAP IS C/D/I AND HEMOVAC HAS MINIMAL BLOOD AT TIME OF ASSESSMENT. AREA AROUND SURGICAL SITE IS WARM TO TOUCH; PATIENT VOICES PAIN WHEN TOUCHED AROUND SURGICAL SITE. PATIENT IS ON BEDREST AND USING URINAL UNTIL PT WORKS WITH HIM. PATIENT SEEMS IN GOOD SPIRITS ABOUT AMPUTATION AND IS "READY TO GET BACK TO NORMAL LIFE". WHEN ASKED ABOUT HIS BODY IMAGE PERCEPTION PATIENT LAUGHED, HELD UP HIS STUMP AND SAID "HERE IT IS, LOOK AT IT; THIS IS ME NOW". 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 PATIENT IS RECIEVING ANTIBIOTICS ON R HAND. IV IS PATENT AND FLUSHES WELL. PATIENT CALLS OUT FOR ANY ASSISTANCE. FALL PRECAUTIONS IN PLACE. WILL CONTINUE TO MONITOR AND FOLLOW POC
--- NOTE | 2019-07-07 05:26 | NUR ---
THIS NURSE AGREES WITH ASSESSMENT AND NOTES BY SUPERVISOR WATER TREATMENT PLANT ON THIS PATIENT.
[2019-07-07 07:12] VITALS: BP 136/72
[2019-07-07 14:10] VITALS: BP 117/67
--- NOTE | 2019-07-07 15:51 | NUR ---
ASSUMED CARE AT 0700. PT AOX4, IN GOOD SPIRITS, PAIN CONTROLLED WITH ORAL PAIN ANALGESIC ORDERED. PT TOLERATING DIET, 2 IVS PATENT AND SALINE LOCKED. PT WORKED WITH PHYSICAL THERAPY. PT USES WALKER TO GO TO THE BATHROOM OR URINAL AT BEDSIDE. BS MONITORED AND INSULIN RECEIVED PER S/S ORDER. PT CALLS APPROP. CALL LIGHT/PERSONAL ITEMS IN REACH. WILL CONTINUE TO MONITOR.
[2019-07-07 19:59] VITALS: BP 142/86
--- NOTE | 2019-07-08 03:43 | NUR ---
PATIENT REMAINS ALERT AND ORIENTED X4. BS MONITORED PER ORDER. MEDICATED FOR PAIN TO LEFT BKA WHERE DRESSING IS DRY AND INTACT. STUMP REAL ESTATE MANAGEMENT SPECIALIST PLACED DURING THE DAY AND REMAINS IN PLACE. IVABX INFUSED W/O COMPLICATION. USING URINAL DURING THE NIGHT. PLEASANT AND COOPERATIVE SEEMS TO BE ADJUSTING WELL TO PARTIAL LOSS OF LIMB. RESTING QUIETLY. WILL MONITOR.
[2019-07-08 04:37] LABS: HEMATOCRIT 26.1 % (42.0-52.0); HEMOGLOBIN 8.6 gm/dL (14.0-18.0); MCH 29.6 pg (26.0-34.0); MCHC 32.9 g/dL (28.0-37.0); RBC 2.9 mil/uL (4.50-6.00); RDW 13.5 % (10.5-14.5); WBC 7.1 thou/uL (4.0-11.0)
[2019-07-08 04:59] LABS: CALCIUM 8.4 mg/dL (8.5-10.1); CREATININE 1.1 mg/dL (0.7-1.3); POTASSIUM 3.7 mmol/L (3.5-5.1)
[2019-07-08 07:21] VITALS: BP 141/69
--- NOTE | 2019-07-08 17:51 | NUR ---
A/O, calm and pleasant; compains of pain in the amputation, pain medication given and worked; no n/v; bed rest. lab reviewed. Family bed side, patient is talking to family. Will keep monitoring.
[2019-07-08 19:02] VITALS: BP 144/78
--- NOTE | 2019-07-09 06:43 | NUR ---
PATIENT ALERT AND ORIENTED X4. COOPERATIVE WITH CARE. MEDICATED FOR PAIN DURING THE NIGHT. STUMP PATTERN FITTER IN PLACE. HEMOVAC WITH RED BLOOD (30ML) DURING THE NIGHT. BS AT 2100 WAS 87 THIS NURSE HELD SCHEDULED LANTUS AND NO S/S WAS GIVEN. SNACK GIVEN TO PATIENT. BS UP TO 112 AT 2150. RECHECKED BS AT 0025 IT WAS 211 AND ADMINISTERED S/S INSULIN ONLY. PATIENT RESTING QUIETLY AND LOOKING FORWARD TO TRANSFER TO [facility] TODAY. WILL MONITOR.
[2019-07-09 07:22] VITALS: BP 164/81
--- NOTE | 2019-07-09 10:38 | NUR ---
SW reviewed chart and spoke with nursing and attending physician. Pt is POD#3 left BKA. [facility] consulted to evaluate pt for admission to inpt acute rehab. Awaiting decision from [facility] at this time. SW met with pt at bedside to discuss discharge plan. Pt's preference is to go to [facility]. [facility] is also following and can accept if needed. SW is following to assist as needed with discharge planning.
[2019-07-09] MEDS ORDERED: ADULT LOW DOSE81 MG PO (12:59)
[2019-07-09] MEDS ORDERED: K-DUR 20 MEQ T20 MEQ PO (13:05)
[2019-07-09] MEDS ORDERED: DEPO-TESTO200 MG/1 M IM (13:06)
[2019-07-09 14:28] VITALS: BP 118/70
--- NOTE | 2019-07-09 18:40 | NUR ---
ASSUMED CARE OF THE PATIENT AT 0715, PATIENT ALERT AND ORIENTED X4. PATIENT UP WITH MIN. ASSIST X 1 WITH WALKER. PATIENT C/O PAIN WITH LEFT STUMP AREA, RECEIVED HYDROCODONE 2 TABLETS X 1 THIS SHIFT. PATIENT HAS RIGHT HAND IV, RECEIVED IV ANTIBIOTIC THIS SHIFT. BLOOD SUGAR MONITORING ORDERED, S/S INSULIN GIVEN ORDERED PER BS READING. PATIENT WILL BE GOING TO [facility], REPORT GIVEN TO MANJINDER/RN. ALL PERSONAL BELONGINGS SENT WITH THE PATIENT.
--- NOTE | 2019-07-10 15:07 | PATH ---
[facility] [place] [address] PATHOLOGY RPT PROCEDURE Name: JANIE CHACON Room #: 412-P [facility] IN M.R.#: [id number] Admission: 06/25/19 Date of : 54 Discharge: 07/09/19 Report #: [id number] Path Case #: [id number] L[facility] Accession Number: [id number] . 01 Material submitted: . leg - LEFT BELOW THE KNEE AMPUTATION. Modifiers: left . 01 Clinical history: . Osteomyelitis left leg . 02 Diagnosis: Leg, "left below the knee amputation": - Gangrenous type of acute inflammation with extensive epidermal and dermal necrosis extending into the underlying muscle and bone with acute osteomyelitis. - The underlying vessels reveal narrowing. - The skin and soft tissue margins that are inked appear viable. . (SHA:gavino; 07/10/2019) S 07/10/2019 1322 Local . 02 Electronically signed: . Alfredo Omalley MD, Pathologist NPI- [id number] . 01 Gross description: . The specimen is received fresh in a red biohazard bag, labeled "Janie Chacon, left lhgkx-gfe-leid amputation". Received is a left pppmn-nfd-flrn amputation measuring 23.7 cm from heel to toe, 20.9 cm from heel to skin margin, 28.7 cm from heel to tibial bone margin, and 34.6 cm from heel to fibular bone margin. The skin and soft tissue margins appear viable near the transected bone margins. All five toes are present. The fifth toe is brown-black and mummified in appearance. On the posterior aspect of the specimen on the lower calf, the muscle has a necrotic appearance. Overlying the lateral malleolus and extending onto the lateral, dorsal and medial aspects of the foot, there is a poorly circumscribed necrotic-appearing to focally ulcerated lesion extending on to the anterior lower dougherty, measuring 28.3 x 15.5 cm. Directly overlying the lateral malleolus, the lesion is releasing underlying exudate. Sectioning through the entire lesion overlying the lateral, dorsal, and medial aspects of the foot, a large amount of exudate is released. This lesion is 8.8 cm from the closest skin margin. The epidermal surface displays a large amount of skin slippage surrounding the lesion. On the plantar aspect of the specimen, there is a second lesion which is light thomas and verrucoid to necrotic in appearance measuring 5.5 x 4.5 cm. Sectioning through the anterior and posterior tibial vasculatures reveals patent lumens with a slight amount of calcification present. The specimen [address] [address] PATHOLOGY RPT PROCEDURE Name: JANIE CHACON Room #: 412-P DIS IN M.R.#: [id number] Admission: 06/25/19 Date of : 54 Discharge: 07/09/19 Report #: [id number] Path Case #: [id number] is submitted representatively as follows: . A1 viable soft tissue margin A2 necrotic-appearing muscle from posterior aspect of calf A3 cash application representative sections of lesion overlying the lateral, dorsal and medial aspect of the foot A4 bone underlying lesion on lateral malleolus, following decalcification A5 cash application representative sections of lesion on plantar aspect of foot A6 anterior and posterior tibial vasculatures. (CAA; 07/09/2019) QAC/QAC 07/09/2019 0916 Local . 02 Pathologist provided ICD-10: M86.162 . 02 CPT . 805191, [id number] Specimen Comment: A courtesy copy of this report has been sent to [phone], [phone] Specimen Comment: [phone], Specimen Comment: Report sent to ,DR MONTES DE OCA / DR VENCES Performed at: 01 [facility] [address] [id number] MD Bairon Schultz MD Phone: [phone] Performed at: 02 [facility] [address] [id number] MD Anthony Lopez MD Phone: [phone]
--- NOTE | 2019-07-11 16:17 | HC ---
[facility] [place] [address] CONSULTATION Name: JANIE CHACON Room #: 412-P [facility] IN M.R.#: [id number] Admission: 06/25/19 Attend Phys: Tori Chopra MD Discharge: 07/09/19 Date of : 54 Report #: [id number] THIS REPORT FOR: //name// CC: Tori Rutherford DATE OF SERVICE: 07/09/2019 HISTORY OF PRESENT ILLNESS: The patient is a 69-year-old -[place] African male with a history of diabetes mellitus, hypertension, left lower extremity Charcot foot with cellulitis. He was noted to have left leg osteomyelitis. Podiatry has been closely involved. He has been on IV antibiotics and is now necessitated undergoing a left below-knee amputation on 07/06/2018. We are seeing him in rehabilitation medicine consultation. PAST MEDICAL HISTORY: Neuropathy, anemia, thought to be anemia of chronic disease, hypertension. He also has a history of hyperlipidemia. ALLERGIES: No known drug allergies. HABITS: Alcohol use only on special occasions. Tobacco use, less than 1 cigarette in life. SOCIAL HISTORY: House, spouse, 7 steps in and then another 7 steps up to the bedroom. is retired. Premorbid roller walker ambulator. REVIEW OF SYSTEMS: Did not offer any current complaints of chest pain, shortness of breath or abdominal discomfort. PHYSICAL EXAMINATION: GENERAL: A 69-year-old -[place] African male, appears to be of slender muscular build. He is alert, pleasant. HEAD, EYES, EARS, NOSE, AND THROAT: Appeared to be benign. VITAL SIGNS: Temperature 98.2, pulse 82, respirations 18, blood pressure 164/81. Follows basic commands without difficulty. EXTREMITIES: Functional range of motion of both upper extremities. Strength is grade 4+/5. DTRs are trace to 1. Lower extremities, left leg, he has the stump powder expert in place. The drain is still in place. He is currently positioned in knee flexion. Working on gentle range of motion. Right lower extremity reveals decreased distal sensation in a stocking distribution with some decreased right large toe proprioception. No skin breakdown noted of that right lower extremity. Strength is probably a grade 4-/5. He has been standby assistance sit to stand, min assist to try to hop short distance with the front-wheeled walker. [address] [address] CONSULTATION Name: JANIE CHACON Room #: 412-P [facility] IN M.R.#: [id number] Admission: 06/25/19 Attend Phys: Tori Chopra MD Discharge: 07/09/19 Date of : 54 Report #: [id number] ASSESSMENT: A 69-year-old -[place] African male with the following problem list: 1. Charcot foot with cellulitis, left lower extremity with osteomyelitis. He is now status post left below knee amputation on 07/06/2019. 2. Diabetes mellitus. 3. Hypertension. 4. Hyperlipidemia. 5. Fall prevention. 6. Multiple stairs. PLAN: The patient is a candidate for an acute [address] [place] [address] inpatient rehabilitation stay. He has mobility and ADL deficits. He has the stairs, which are a barrier. He is very motivated. Complained and transferred to the acute [address] [place] [address] inpatient rehab joseph when medically cleared. Thank you for asking us to assist in this patient's care. <ELECTRONICALLY SIGNED> By: Paresh Felton MD 07/11/19 1617 [id number] Paresh Felton MD /[facility]
== END 2019-07-09 19:44 | DRG 853 ==
LOC: ER 10:16 → 4N 14:41 → EROBS 14:41 → 4N 16:00
PROVIDERS: Hospitalist; Internal Medicine; Internal Medicine Infectious Disease; Nurse Practitioner Family; Orthopaedic Surgery Foot and Ankle Surgery; ADMIT Internal Medicine
PROC: 0Y6J0Z2 Detachment at Left Lower Leg, Mid, Open Approach (ICD-10-PCS; principal; 2019-07-06)
DX: A41.9 Sepsis, unspecified organism (principal); E43 Unspecified severe protein-calorie malnutrition; L03.116 Cellulitis of left lower limb; E11.52 Type 2 diabetes mellitus with diabetic peripheral angiopathy with gangrene; I96 Gangrene, not elsewhere classified; M86.8X6 Other osteomyelitis, lower leg; R65.20 Severe sepsis without septic shock; M14.672 Charcot's joint, left ankle and foot; I10 Essential (primary) hypertension; E78.5 Hyperlipidemia, unspecified; E11.69 Type 2 diabetes mellitus with other specified complication; D64.9 Anemia, unspecified; E11.42 Type 2 diabetes mellitus with diabetic polyneuropathy; A49.8 Other bacterial infections of unspecified site; Z83.3 Family history of diabetes mellitus; Z82.49 Family history of ischemic heart disease and other diseases of the circulatory system; Z68.27 Body mass index [BMI] 27.0-27.9, adult; Z79.899 Other long term (current) drug therapy
CPT/HCPCS: 10091; 50010; 50386; 51412; 53000; 53078; 56524; 56525; 57091; 57180

== ENCOUNTER 2019-07-09 15:23 | Inpatient (IN) | payer OTHER ==
[~2019-07-09] VITALS: Ht 180.3 cm; Wt 90.7 kg
[~2019-07-09 15:23] MED LIST: ADULT LOW DOSE81 MG PO; AMLODIPINE BESY10 MG PO; DEPO-TESTO200 MG/1 M IM; GLYBURIDE 5 MG T5 M1 PO; K-DUR 20 MEQ T20 MEQ PO; LIPITOR10 MG PO; METFORMIN HCL1000 MG PO
[2019-07-10 05:53] LABS: HEMATOCRIT 26.9 % (42.0-52.0); HEMOGLOBIN 8.8 gm/dL (14.0-18.0); MCH 29.5 pg (26.0-34.0); MCHC 32.7 g/dL (28.0-37.0); MCV 90.3 fL (80.0-100.0); RBC 2.98 mil/uL (4.50-6.00); WBC 5.7 thou/uL (4.0-11.0)
[2019-07-10 06:23] LABS: CALCIUM 8.4 mg/dL (8.5-10.1); POTASSIUM 4.2 mmol/L (3.5-5.1)
[2019-07-10 06:32] VITALS: BP 159/86
[2019-07-10 19:45] VITALS: BP 92/57
[2019-07-11 06:59] LABS: FOLIC ACID 6.2 ng/mL (8.6-58.9)
[2019-07-11 07:45] VITALS: BP 141/95
--- NOTE | 2019-07-11 08:15 | HC ---
[facility] [address] CONSULTATION Name: JANIE CHACON Room #: 510-P [facility] IN M.R.#: [id number] Admission: 07/09/19 Attend Phys: Paresh Felton MD Discharge: Date of : 54 Report #: [id number] THIS REPORT FOR: //name// CC: Paresh Rutherford MD DATE OF SERVICE: 07/10/2019 ENDOCRINE CONSULTATION NOTE CONSULTING PHYSICIAN: Dr. Felton. REASON FOR CONSULTATION: Uncontrolled type 2 diabetes mellitus. HISTORY OF PRESENT ILLNESS: This is a 69-year-old male patient whose medical background is significant for type 2 diabetes mellitus, hypertension as well as longstanding issues with left lower extremity Charcot foot and cellulitis. The patient was recently admitted to [facility] with progressive difficulties pertaining to left leg osteomyelitis that have eventually culminated in a left below-knee amputation on 07/06/2019. Subsequently, he was admitted to the rehab unit house at [facility] for the purpose of rehabilitation. On further discussions with the patient, he indicated that he has had type 2 diabetes mellitus since the age of 42 years. His most recent antidiabetic regimen consisted of a combination of metformin, glyburide, as well as Lantus insulin. Unfortunately, and due to the rising cost of Lantus, the patient decided to quit it, at which time he noticed a major change in his blood glucose control to where these values have risen consistently above 200 mg/dL. When asked further about the occurrence of diabetic complications, the patient denies having had issues with diabetic retinopathy, diabetic neuropathy, coronary artery disease or nephropathy. Additionally, the patient has hypertension and is maintained on antihypertensive therapy. He is also hyperlipidemic and is maintained on lipid-lowering therapy. REVIEW OF SYSTEMS: CONSTITUTIONAL: Intermittent issues with fatigue, tiredness, but not weight loss, fever or chills. HEENT: Negative for sore throat, sinus pain, ear drainage. PULMONARY: Occasional shortness of breath and cough, but not hemoptysis. CARDIAC: Occasional palpitations, dyspnea on exertion, lower extremity swelling, but not chest pain. GASTROINTESTINAL: Negative for chronic abdominal pain, nausea, vomiting or significant changes in bowel movements. [facility] [address] [place] [address] CONSULTATION Name: JANIE CHACON Room #: 510-P [facility] IN M.R.#: [id number] Admission: 07/09/19 Attend Phys: Paresh Felton MD Discharge: Date of : 54 Report #: [id number] NEUROLOGY: Negative for loss of consciousness, severe frequent headaches, seizure activity. PSYCHOLOGY: Negative for hallucinations, delusions, depression or anxiety. Otherwise, review of systems noncontributory other than those mentioned in HPI. PAST MEDICAL HISTORY: 1. Type 2 diabetes mellitus. 2. Hypertension. 3. Hyperlipidemia. 4. Peripheral vascular disease. 5. Left lower extremity osteomyelitis and Charcot foot, status post left below-knee amputation on 07/06/2019. 6. Hypogonadism. ALLERGIES: No known drug allergies. CURRENT MEDICATIONS: Include aspirin 81 mg daily, atorvastatin 10 mg at bedtime, glyburide 5 mg b.i.d., Glucophage 1000 mg b.i.d., Norvasc 10 mg daily, testosterone cypionate 200 mg q. 14 days. FAMILY HISTORY: Noncontributory. SOCIAL HISTORY: The patient denies use of tobacco, alcohol or illicit drugs. PHYSICAL EXAMINATION: GENERAL: Pleasant -Montserratian male patient who is not in apparent pain or distress. VITAL SIGNS: Blood pressure is 139/86 mmHg, heart rate is 83 beats per minute, respirations 20 per minute, temperature 36.7 degrees. CONSTITUTIONAL: The patient is sitting upright in his chair, appears comfortable, not in apparent distress. HEENT: Anicteric sclerae. Intact extraocular motions. NECK: Supple, without JVD, carotid bruits or lymphadenopathy. I do not appreciate thyromegaly. CHEST: Noted for good air entry bilaterally without wheezes or crackles. HEART: Regular rate and rhythm without murmurs or gallops. ABDOMEN: Soft and lax without tenderness or organomegaly, has active bowel sounds. EXTREMITIES: Lower extremity exam is noted for left below knee amputation with a surgical compression dressing around the stump. Right lower extremity shows trace ankle edema, palpable pedal pulses, largely intact sensation to light touch. NEUROLOGIC: Awake, alert and oriented to time, place and person. The remainder of examination is nonfocal. PSYCHIATRIC: Pleasant, interactive, appropriate. Normal thought process. [address] [address] CONSULTATION Name: JANIE CHACON Room #: 510-P [facility] IN M.R.#: [id number] Admission: 07/09/19 Attend Phys: Paresh Felton MD Discharge: Date of : 54 Report #: [id number] Normal mood and affect. LABORATORY DATA: Blood glucose values have consistently been well over 200 mg/dL, occasionally in the 300 mg/dL range. No major occurrences of hypoglycemia. The lowest I have seen in several days was 87 mg/dL. Otherwise, sodium 135, potassium 4.2, chloride 101, CO2 of 28, anion gap 6, BUN 13, creatinine 1.0, AST 19, total bilirubin 0.2, calcium 8.4, phosphorus 3.8, magnesium 1.8, alkaline phosphatase 222, ALT 22, total protein 7.5, albumin 1.3, EGFR 90. Lactic acid 1.5. Protime 11.7, INR 1.1. White blood count 5.7, hemoglobin 8.8, hematocrit 26.9, platelets 490. TSH 2.072. Hemoglobin A1c is 12.6. Total testosterone was 20.8. ASSESSMENT AND PLAN: 1. Type 2 diabetes mellitus. This is rather uncontrolled judging by his reported blood glucose values and by the documented hemoglobin A1c. I believe that the elimination of Lantus from his regimen has caused a great deal of hyperglycemia and as such, I would very much like to reuse insulin and his regimen. I discussed this with him at length and he is certainly agreeable. His only contention was that of the cost of insulin. That said, I will resort to human mixed insulin 70/30 at a dose of 10 units before breakfast and dinner and eliminate the glyburide from his regimen. That said, I will maintain metformin therapy at the same dose of 1000 mg b.i.d. and I will also maintain coverage with Humalog supplemental scale, moderate intensity until he demonstrates more stability. As we do so, blood glucose monitoring will continue a.c. and at bedtime. 2. Hyperlipidemia. The patient is maintained on a regimen of atorvastatin 10 mg at bedtime. He is to continue with the same. 3. Hypertension. The patient's level of blood pressure control is reasonable on the current Norvas regimen, we will continue the same. 4. Hypogonadism. The patient is currently maintained on testosterone cypionate based on the finding of hypogonadism during his recent hospital stay. I would argue that the assessment of hypogonadism under conditions of extreme physiologic stress is not ideal; however, I do not mind pursuing this therapy for the time being as it might be advantageous to his healing. However, a more thorough assessment, especially in terms of assigning pituitary versus a testicular source would be important as well as having a full appreciation of his safety to continue with his therapy. Along those lines, I will obtain a PSA level. I have reviewed the patient's clinical care notes, laboratory data, radiologic data past and present for over [address] [address] CONSULTATION Name: JANIE CHACON Room #: 510-P [facility] IN M.R.#: [id number] Admission: 07/09/19 Attend Phys: Paresh Felton MD Discharge: Date of : 54 Report #: [id number] I certainly appreciate this consultation by Dr. Felton. <ELECTRONICALLY SIGNED> By: Domo Madsen MD 07/11/19 0815 1215 [id number] Domo Madsen MD /nt
[2019-07-11 19:47] VITALS: BP 134/86
[2019-07-12 09:06] VITALS: BP 144/81
[2019-07-13 09:00] VITALS: BP 124/56
[2019-07-13 20:34] VITALS: BP 123/59
[2019-07-13 20:50] VITALS: BP 126/72
[2019-07-14 07:42] VITALS: BP 149/88
[2019-07-14 19:00] VITALS: BP 112/64
[2019-07-15 09:57] VITALS: BP 124/60
[2019-07-15 20:25] VITALS: BP 148/79
[2019-07-16 05:26] LABS: ABSOLUTE NEUTROPHILS 2.5 thou/uL (1.4-8.2); BASOPHILS 0.7 % (0.0-2.0); EOSINOPHILS 1.8 % (0.0-3.0); HEMATOCRIT 27.9 % (42.0-52.0); LYMPHOCYTES 41.2 % (24.0-44.0); MCH 29.6 pg (26.0-34.0); MCHC 32.3 g/dL (28.0-37.0); MCV 91.5 fL (80.0-100.0); MONOCYTES 6.7 % (1.0-8.0); PLATELET COUNT 407 thou/uL (150-400); POLYS 49.6 % (36.0-66.0); RBC 3.04 mil/uL (4.50-6.00); RDW 15.1 % (10.5-14.5)
[2019-07-16 05:36] LABS: CALCIUM 9.2 mg/dL (8.5-10.1); CREATININE 0.9 mg/dL (0.7-1.3); MAGNESIUM 1.8 mg/dL (1.8-2.4); POTASSIUM 3.9 mmol/L (3.5-5.1)
[2019-07-16 07:45] VITALS: BP 130/73
[2019-07-16 16:50] VITALS: BP 130/73
--- NOTE | 2019-07-16 18:38 | HC ---
[facility] [place] [address] CONSULTATION Name: JANIE CHACON Room #: 501-A [facility] IN ..#: [id number] Admission: 07/09/19 Attend Phys: Paresh Felton MD Discharge: Date of : 54 Report #: [id number] THIS REPORT FOR: //name// CC: Paresh Rutherford DATE OF SERVICE: 07/14/2019 PSYCHOLOGICAL CONSULTATION. ATTENDING PHYSICIAN: Paresh Felton MD MAINFRAME CONSULTANT: Juan Alexandre, PhD CLINICAL PRESENTATION: The patient is a 69-year-old male admitted to the rehabilitation unit at [facility] for comprehensive inpatient rehabilitation program to improve functional mobility, activities of daily living and self-care and mental status secondary to a rxzpx-[id number]-[id number] amputation. He presented with a history of diabetes mellitus, hypertension and left lower extremity Charcot's foot with cellulitis. His wound on his foot was non healing and he underwent a left shxqp-dim-[id number] amputation on 07/06/2018. A complete description of his medical condition and history can be found in his medical record. Neuropsychological consultation was requested to provide assistance in the assessment of emotional status and to provide recommendations and services. Prior to this most recent amputation, he was living independently with his in their home. The patient has one daughter and three grandchildren. 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 In his family of origin, there is a history of alcohol abuse. The patient does not drink alcohol himself. There is no prior history of treatment for depression or anxiety. TECHNIQUES UTILIZED: Clinical interview, review of medical records, staff consultation and behavioral observation. EXAMINATION FINDINGS: The patient was alert and cooperative with the assessment. There is no evidence of aphasia. He accurately described the reason for his hospitalization and current treatment. He does not report auditory or visual hallucinations. He indicates that his appetite was diminished prior to his hospitalization. He had higher anxiety when he was at home, along with a significant weight loss. Most recently, his appetite has improved and he describes himself as less anxious. The anxiety that preceded his hospitalization was the result of Charcot-Kalina tooth and non healing wound. Currently, he is feeling more optimistic and positive about his recovery and treatment. Additional symptoms [address] [address] CONSULTATION Name: JANIE CHACON Room #: 501-A [facility] IN ..#: [id number] Admission: 07/09/19 Attend Phys: Paresh Felton MD Discharge: Date of : 54 Report #: [id number] are reported to include sleep disturbance, tiredness and fatigue. He does not report depression. DIAGNOSTIC IMPRESSION: Unspecified anxiety disorder. RECOMMENDATIONS: The anxiety disorder is described as resolving with his adjustment to the amputation and optimism about a return to activities of prior interests. Now that the foot is amputated, he anticipates a return to prior levels of activity. His mood is generally good and optimistic. Thank you very much for allowing me to provide the consultation on this patient. <ELECTRONICALLY SIGNED> By: Juan Alexandre, PhD 07/16/19 1838 [id number] Juan Alexandre, PhD /nt
[2019-07-16 19:10] VITALS: BP 127/74
[2019-07-17 07:15] VITALS: BP 124/70
[2019-07-17] MEDS ORDERED: VITAMIN B-12500 MCG PO (11:36)
[2019-07-17] MEDS ORDERED: IRON325 PO (11:36)
[2019-07-17] MEDS ORDERED: FOLIC ACID1 MG PO (11:36)
[2019-07-17] MEDS ORDERED: NEURONTIN 300M300 M2 PO (11:36)
--- NOTE | 2019-07-18 15:15 | H ---
[facility] [place] [address] HISTORY AND PHYSICAL Name: JANIE CHACON Room #: 501-A [facility] IN .R.#: [id number] Admission: 07/09/19 Attend Phys: Paresh Felton MD Discharge: 07/17/19 Date of : 54 Report #: [id number] THIS REPORT FOR: //name// CC: Paresh Rutherford DATE OF SERVICE: 07/09/2019 POST ADMISSION PHYSICIAN EVALUATION HISTORY OF PRESENT ILLNESS: The patient is a 69-year-old -[place] male who has a history of diabetes mellitus, hypertension, left lower extremity Charcot foot with cellulitis. He was noted to have left leg osteomyelitis. Podiatry was closely involved. He was on IV antibiotics and underwent a left below-knee amputation on 07/06/2018. He was noted to have significant functional mobility and ADL deficits and has been admitted for acute in-hospital inpatient rehabilitation. Please see the history and physical. I agree with the documentation, assessment and plan. As far as past medical history, allergies, habits, and social history, please see the history and physical. MEDICATIONS: Please see the MAR. REVIEW OF SYSTEMS: No current complaints of chest pain, shortness of breath or abdominal discomfort. PHYSICAL EXAMINATION: GENERAL: A 69-year-old -[place] male in no obvious distress. VITAL SIGNS: Temperature 98.1, pulse 83, respirations 20, blood pressure 139/86. NEUROLOGIC: The patient is alert. CHEST: Sounded clear to auscultation. CARDIOVASCULAR: Regular rate and rhythm. ABDOMEN: Bowel sounds positive, nontender. GENITOURINARY AND RECTAL: Deferred. EXTREMITIES: Functional range of motion of both upper extremities. Strength is 4+/5. 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 Working on gentle range of motion. Right lower extremity reveals decreased sensation in a stocking distribution with strength of that right lower extremity, probably a grade 4-/5. He has been standby assistance sit to stand, min assist to try to hop short distances. ASSESSMENT: 1. Charcot foot with cellulitis, left lower extremity with osteomyelitis. He is now status post left below knee amputation 07/06/2019. [address] [address] HISTORY AND PHYSICAL Name: JANIE CHACON Room #: 501-A [facility] IN [facility].#: [id number] Admission: 07/09/19 Attend Phys: Paresh Felton MD Discharge: 07/17/19 Date of : 54 Report #: [id number] 2. Diabetes mellitus. 3. Hypertension. 4. Hyperlipidemia. 5. Fall prevention. 6. Multiple stairs. PLAN: The patient has been admitted for acute in-hospital inpatient rehabilitation. From a postadmission physician evaluation perspective, there are no relevant changes since the preadmission screening. Please see the above noted review of prior and current medical and functional conditions and comorbidities. Please see the patient's previous and current functional status. As far as risk of complications, there are multiple medical comorbidities as noted above. Initial plan of care involves the interdisciplinary acute inpatient rehabilitation program. Measurable functional goals would be for the patient to become modified independent with transfers, mobility, ADLs, so that he can hopefully return back to his prior living situation. Prognosis is reasonably good with estimated length of stay probably at least 7-14 days pending progress. Potential barriers would include his multiple medical comorbidities and decreased functional status. The patient meets diagnostic criteria for an acute in-hospital inpatient rehabilitation stay. He meets the medical necessity criteria. He does have the tolerance for therapies and has appropriate discharge goals back to the home setting. <ELECTRONICALLY SIGNED> By: Paresh Felton MD 07/18/19 1515 [id number] [id number] Paresh Felton MD /[facility]
--- NOTE | 2019-07-18 15:15 | PLAN ---
[facility] [place] [address] REHAB UNIT PLAN OF CARE Name: JANIE CHACON Room #: 501-A [facility] IN M.R.#: [id number] Admission: 07/09/19 Attend Phys: Paresh Felton MD Discharge: 07/17/19 Date of : 54 Report #: [id number] THIS REPORT FOR: //name// CC: Paresh Rutherford DATE OF SERVICE: 07/11/2019 PROGRESS NOTE/OVERALL PLAN OF CARE The patient is seen back today in followup. He is in no distress. Last recorded temperature 98.5, pulse 92, respirations 20, blood pressure 92/57. He has been fitted with the AmpuShield. Some discomfort with it. Discussed with nursing and we will allow him intermittent breaks. He has been working in therapies with bed mobility, independent transfers, standby assistance. He is hopping a few feet, standby assistance with a front-wheeled walker. Occupational therapy, upper body dressing standby with lower body dressing standby. ASSESSMENT: 1. Charcot foot with cellulitis, left lower extremity osteomyelitis, status post left below-knee amputation on 07/06/2019. 2. Diabetes mellitus type 2. 3. Hypertension. 4. Hyperlipidemia. 5. Mild postoperative anemia. PLAN: The overall plan of care is based on the preadmission screen, post-admission physician evaluation and information garnered from therapy assessments. 1. Estimated length of stay is planning for discharge next Tuesday on 07/17/2018. 2. Medical prognosis is reasonably good. 3. Anticipated interventions includes the interdisciplinary acute inpatient rehabilitation program. 4. Anticipated functional outcomes would be for the patient to become modified independent with transfers, mobility and ADLs at a walker level. 5. Discharge destination will be back to the home setting where he lives with his . 6. Expected therapy by discipline includes PT and OT 1-1/2 hours per day each five days a week throughout the duration of the acute inpatient rehabilitation stay. <ELECTRONICALLY SIGNED> By: Paresh Felton MD 07/18/19 1515 [id number] Paresh Felton MD /[facility]
== END 2019-07-17 13:11 | disposition home health service (06) | DRG 603 ==
LOC: ENTRNSPT 07-17 13:03 → EDTRNSPTSTS 07-17 13:06
PROVIDERS: Nurse Practitioner; ADMIT Physical Medicine & Rehabilitation
DX: L03.116 Cellulitis of left lower limb (principal); M86.8X6 Other osteomyelitis, lower leg; D62 Acute posthemorrhagic anemia; E11.52 Type 2 diabetes mellitus with diabetic peripheral angiopathy with gangrene; I96 Gangrene, not elsewhere classified; E11.610 Type 2 diabetes mellitus with diabetic neuropathic arthropathy; E11.69 Type 2 diabetes mellitus with other specified complication; I10 Essential (primary) hypertension; E11.65 Type 2 diabetes mellitus with hyperglycemia; E29.1 Testicular hypofunction; R26.9 Unspecified abnormalities of gait and mobility; E11.42 Type 2 diabetes mellitus with diabetic polyneuropathy; Z89.512 Acquired absence of left leg below knee; Z79.84 Long term (current) use of oral hypoglycemic drugs; Z79.82 Long term (current) use of aspirin; Z83.3 Family history of diabetes mellitus; Z82.49 Family history of ischemic heart disease and other diseases of the circulatory system
CPT/HCPCS: 10112